=== PATIENT | male | born 1970 | race Caucasian/White ===

== ENCOUNTER 2021-06-01 01:50 | Inpatient (IN) | payer MEDICAID, SELFPAY ==
[2021-06-01] VITALS (22 sets, daily range): BP systolic 89–120; BP diastolic 43–74; PULSE 79–138; RESP 11–33; TEMP 32.2–36.9; O2SAT 92–100; BMI 19.3; BMI 20.2
--- NOTE | ~2021-06-01 | XR_ITS ---
EXAMINATION: XR CHEST CLINICAL INFORMATION: Shortness of breath. Altered mental status. COMPARISON: 08/01/2014 TECHNIQUE: Frontal view of the chest was obtained. FINDINGS: Cardiac leads overlie the chest. The lungs are well expanded. Opacity at the right midlung is likely associated with the anterior aspect of the right fourth rib. The lungs otherwise appear clear. No pleural effusion or pneumothorax. The cardiomediastinal silhouette is within normal limits. XR/XR chest 1V IMPRESSION: There is a focal opacity at the right midlung, though this is likely associated with the anterior right fourth rib. Otherwise clear lungs.
--- NOTE | 2021-06-01 02:00 | ECG_ITS ---
Test Reason : DKA Blood Pressure : / mmHG Vent. Rate : 107 BPM Atrial Rate : 107 BPM P-R Int : 172 ms QRS Dur : 104 ms QT Int : 388 ms P-R-T Axes : 082 082 058 degrees QTc Int : 517 ms Sinus tachycardia Otherwise normal ECG When compared with ECG of 01-AUG-2014 00:29, QT has lengthened Referred By: Mary Wong Electronically Signed By:Adolfo Madera
--- NOTE | 2021-06-01 02:07 | ED.AMS ---
HPI - Altered Mental Status General Chief Complaint: Altered Mental Status Stated Complaint: HIGH BLOOD SUGAR 485 W/AMS PER EMS Time Seen by Provider: 06/01/21 01:59 Source: family () Mode of arrival: EMS History of Present Illness HPI narrative: 50-year-old male brought in by EMS, altered mental status so unable to get any further history and otherwise on clinical assessment noted to be in DKA with smell and respiratory pattern. Related Data Allergies Allergy/AdvReac Type Severity Reaction Status Date / Time No Known Allergies Allergy Unverified 01/08/20 18:52 [No Known Allergies*] Review of Systems Review of Systems: Yes Unobtainable due to mental condition PMFSH Past Medical History Source: nursing notes reviewed Medical History (Updated 06/01/21 @ 05:51 by Tyree Wilson NP) Bowel obstruction Chronic anemia CKD (chronic kidney disease) Hypertension PEA (Pulseless electrical activity) Type 1 diabetes Social History Social History Household Members: Spouse Housing: Unknown / Unable to assess Do you presently have visiting nurse or other home services: No (UNKNOWN) Unable to assess alcohol history related to: Unknown Patient Tobacco Use Status: Tobacco use Unknown Use of substances other than those prescribed or required for medical reasons: Unknown Spiritual Healthcare Practices: UNKNOWN Jainism Healthcare Practices: UNKOWN Cultural Healthcare Practices: UNKNOWN Advance Directives: No Advance Directives Information Provided: No (declined) Do you have thoughts of harming others: None Recently lost weight without trying: Unsure Physical Exam Vital Signs: Vital Signs: Last Vital Signs Temp 97.3 F 06/01/21 08:00 Pulse 137 H 06/01/21 08:00 Resp 31 H 06/01/21 08:00 BP 120/63 06/01/21 08:00 Pulse Ox 100 06/01/21 08:00 BMI result Body Mass Index 19.3 VITAL SIGNS: Reviewed. GENERAL: Smells of acetone, appears older than stated age, acute distress. HEAD: Normocephalic/atraumatic EYES: PERRLA, EOMI EARS: Ext canals without abnormality NOSE: Nares patent bilateral OROPHARYNX: no oral lesions noted, posterior pharynx clear, dry mucosa NECK: Supple, no adenopathy LUNGS: Kussmaul breathing pattern, No adventitious sounds or accessory muscle use. SpO2<98> CARDIOVASCULAR: Sinus tachycardia and rhythm without noted murmurs, no JVD or lower extremity edema. ABDOMEN: Soft, non-tender, non-distended with bowel sounds. MUSCULOSKELETAL: No tenderness, deformities, or effusions noted on gross inspection. EXTREMITIES: No cyanosis, clubbing or edema. SKIN: Inspection of the skin reveals no rashes, cool extremities NEUROLOGIC: GCS-10. Strength and sensation to light touch were grossly intact x 4. Course Course Course Narrative: 50-year-old male with history and clinical presentation consistent with severe dehydration, DKA and unknown etiology. Patient has not been seen here at our facility previously and contact information is not available. As per EMS when asked who called them they stated that ?his called?. Patient is noted to be severely acidotic, is received aggressive IV fluid resuscitation and once potassium levels (gave Calcium gluconate) were ascertained patient was started on insulin drip and provided with IV push bicarb for pH-6.9 and due to elevated potassium levels which may be due in part to patient's severe dehydration he was provided with calcium gluconate. On review of the EKG shows sinus tachycardia without widened complex but peaked T-waves noted. Will repeat lab work at 05:00. Galvez catheter has started draining clear, yellow urine and patient's mentation has gradually improved. I discussed this case with the systems librarian who accepts admission On review of repeat lab work there is noted improvement. MDM - Altered Mental Status Lab Data Result diagrams: 06/01/21 04:51 06/01/21 04:51 Labs: Lab Results 06/01/21 06/01/21 06/01/21 Range/Units 01:56 03:06 03:06 WBC 37.9 H* (4.8-10.8) X10*3/uL RBC 3.21 L (4.60-5.80) X10*6/uL Hgb 8.5 L (14.0-18.0) g/dl Hct 34.2 L (42.0-52.0) % MCV 106.5 H (80.0-98.0) fL MCH 26.5 L (27.0-33.0) pg MCHC 24.9 L (31.0-36.0) g/dl RDW 17.5 H (11.0-16.0) % Plt Count 695 H (160-400) X10*3/uL MPV 10.5 (9.4-12.4) fL Immature Gran % (Auto) Cancelled Neut % (Auto) Cancelled Lymph % (Auto) Cancelled [place] % (Auto) Cancelled Eos % (Auto) Cancelled Baso % (Auto) Cancelled Lymph # (Auto) Cancelled [place] # (Auto) Cancelled Eos # (Auto) Cancelled Baso # (Auto) Cancelled Abs Immat Gran (auto) Cancelled Absolute Neuts (auto) Cancelled Absolute Nucleated RBC 0.040 H (0.0-0.012) X10*3/uL Nucleated RBC % (auto) 0.1 (0.0-0.2) /100WBC Neutrophils % (Manual) 78 H (45-73) % Band Neutrophils % 6 H (3-5) % Lymphocytes % (Manual) 9 L (20-40) % Monocytes % (Manual) 4 (2-11) % Basophils % (Manual) 1 (0-2) % Metamyelocytes % 2 % Abs Neuts (Manual) 31.8 H (2.0-8.3) X10*3/uL Lymphocytes # (Manual) 3.4 (1.2-4.9) X10*3/uL Monocytes # (Manual) 1.5 H (0.1-1.2) X10*3/uL Basophils # (Manual) 0.4 H (0.0-0.2) X10*3/uL Metamyelocytes # 0.8 X10*3/uL Nucleated RBCs 1 H (0-0) /100WBC Smudge Cells PRESENT Platelet Estimate INCREASED (NORMAL) Large Platelets PRESENT Giant Platelets PRESENT Plt Morphology Comment NOTED RBC Morphology NOTED Polychromasia 1+ (0-2) /OIF Microcytosis 1+ (5-14) /OIF Macrocytosis 1+ (5-14) /OIF Ovalocytes 1+ (5-14) /OIF Kirstie Cells 2+ (3-5) /OIF Schistocytes 1+ (0-2) /OIF PT (9.9-13.0) SEC INR (0.9-1.1) VBG pH (7.32-7.43) VBG pCO2 mmHg VBG pO2 mmHg VBG HCO3 (22-26) mmol/L VBG O2 Saturation % VBG Base Excess mmol/L Sodium 123 L (135-145) mmol/L Potassium 7.9 H* (3.3-5.1) mmol/L Chloride 78 L (96-108) mmol/L Carbon Dioxide < 5 L* (22-29) mmol/L Anion Gap TNP BUN 86 H (9-16) mg/dL Creatinine 4.20 H* (0.5-1.4) mg/dL Estim Creat Clear Calc 17.5 Estimated GFR 15 POC Glucose > 600 H* (60-115) mg/dL Random Glucose 1951 H* (60-115) mg/dL Lactic Acid (0.5-2.0) mmol/L Calcium 9.7 (8.4-10.2) mg/dL Magnesium 3.4 H (1.6-2.6) mg/dL Total Bilirubin 0.2 (0.0-1.0) mg/dL AST 15 (5-37) U/L ALT 49 H (0-40) U/L Alkaline Phosphatase 175 H (39-117) U/L Total Creatine Kinase 86 (38-174) U/L Total Protein 5.8 L (6.5-8.0) g/dL Albumin 3.3 L (3.5-5.0) g/dL Urine Color Urine Appearance Urine pH (5.0-8.0) Ur Specific [place] (1.005-1.025) Urine Protein (NEG-TRACE) MG/DL Urine Glucose (UA) (NEG) MG/DL Urine Ketones (NEG) MG/DL Urine Blood (NEG) Urine Nitrite (NEG) Ur Leukocyte Esterase (NEG) Urine RBC (0) /HPF Urine WBC (0-4) /HPF Ur Squamous Epith Cells /LPF Urine Bacteria /LPF Hyaline Casts /LPF Granular Casts /LPF Urine Mucus /LPF Urine Opiates Screen (Not Detect) Urine Fentanyl Screen (Not Detect) Ur Barbiturates Screen (Not Detect) Ur Phencyclidine Scrn (Not Detect) Ur Amphetamines Screen (Not Detect) U Benzodiazepines Scrn (Not Detect) Urine Cocaine Screen (Not Detect) U Marijuana (THC) Screen (Not Detect) Acetone, Qual Moderate H (Negative) COVID-19 (CON) (Negative) COVID-19 Clin Com 06/01/21 06/01/21 06/01/21 Range/Units 03:06 03:06 03:09 WBC (4.8-10.8) X10*3/uL RBC (4.60-5.80) X10*6/uL Hgb (14.0-18.0) g/dl Hct (42.0-52.0) % MCV (80.0-98.0) fL MCH (27.0-33.0) pg MCHC (31.0-36.0) g/dl RDW (11.0-16.0) % Plt Count (160-400) X10*3/uL MPV (9.4-12.4) fL Immature Gran % (Auto) Neut % (Auto) Lymph % (Auto) [place] % (Auto) Eos % (Auto) Baso % (Auto) Lymph # (Auto) [place] # (Auto) Eos # (Auto) Baso # (Auto) Abs Immat Gran (auto) Absolute Neuts (auto) Absolute Nucleated RBC (0.0-0.012) X10*3/uL Nucleated RBC % (auto) (0.0-0.2) /100WBC Neutrophils % (Manual) (45-73) % Band Neutrophils % (3-5) % Lymphocytes % (Manual) (20-40) % Monocytes % (Manual) (2-11) % Basophils % (Manual) (0-2) % Metamyelocytes % % Abs Neuts (Manual) (2.0-8.3) X10*3/uL Lymphocytes # (Manual) (1.2-4.9) X10*3/uL Monocytes # (Manual) (0.1-1.2) X10*3/uL Basophils # (Manual) (0.0-0.2) X10*3/uL Metamyelocytes # X10*3/uL Nucleated RBCs (0-0) /100WBC Smudge Cells Platelet Estimate (NORMAL) Large Platelets Giant Platelets Plt Morphology Comment RBC Morphology Polychromasia /OIF Microcytosis /OIF Macrocytosis /OIF Ovalocytes /OIF Kirstie Cells /OIF Schistocytes /OIF PT 11.5 (9.9-13.0) SEC INR 1.0 (0.9-1.1) VBG pH (7.32-7.43) VBG pCO2 mmHg VBG pO2 mmHg VBG HCO3 (22-26) mmol/L VBG O2 Saturation % VBG Base Excess mmol/L Sodium (135-145) mmol/L Potassium (3.3-5.1) mmol/L Chloride (96-108) mmol/L Carbon Dioxide (22-29) mmol/L Anion Gap BUN (9-16) mg/dL Creatinine (0.5-1.4) mg/dL Estim Creat Clear Calc Estimated GFR POC Glucose (60-115) mg/dL Random Glucose (60-115) mg/dL Lactic Acid 2.5 H* (0.5-2.0) mmol/L Calcium (8.4-10.2) mg/dL Magnesium (1.6-2.6) mg/dL Total Bilirubin (0.0-1.0) mg/dL AST (5-37) U/L ALT (0-40) U/L Alkaline Phosphatase (39-117) U/L Total Creatine Kinase (38-174) U/L Total Protein (6.5-8.0) g/dL Albumin (3.5-5.0) g/dL Urine Color Urine Appearance Urine pH (5.0-8.0) Ur Specific [place] (1.005-1.025) Urine Protein (NEG-TRACE) MG/DL Urine Glucose (UA) (NEG) MG/DL Urine Ketones (NEG) MG/DL Urine Blood (NEG) Urine Nitrite (NEG) Ur Leukocyte Esterase (NEG) Urine RBC (0) /HPF Urine WBC (0-4) /HPF Ur Squamous Epith Cells /LPF Urine Bacteria /LPF Hyaline Casts /LPF Granular Casts /LPF Urine Mucus /LPF Urine Opiates Screen (Not Detect) Urine Fentanyl Screen (Not Detect) Ur Barbiturates Screen (Not Detect) Ur Phencyclidine Scrn (Not Detect) Ur Amphetamines Screen (Not Detect) U Benzodiazepines Scrn (Not Detect) Urine Cocaine Screen (Not Detect) U Marijuana (THC) Screen (Not Detect) Acetone, Qual (Negative) COVID-19 (CON) Negative (Negative) COVID-19 Clin Com See Note 06/01/21 06/01/21 06/01/21 Range/Units 03:16 04:39 04:39 WBC (4.8-10.8) X10*3/uL RBC (4.60-5.80) X10*6/uL Hgb (14.0-18.0) g/dl Hct (42.0-52.0) % MCV (80.0-98.0) fL MCH (27.0-33.0) pg MCHC (31.0-36.0) g/dl RDW (11.0-16.0) % Plt Count (160-400) X10*3/uL MPV (9.4-12.4) fL Immature Gran % (Auto) Neut % (Auto) Lymph % (Auto) [place] % (Auto) Eos % (Auto) Baso % (Auto) Lymph # (Auto) [place] # (Auto) Eos # (Auto) Baso # (Auto) Abs Immat Gran (auto) Absolute Neuts (auto) Absolute Nucleated RBC (0.0-0.012) X10*3/uL Nucleated RBC % (auto) (0.0-0.2) /100WBC Neutrophils % (Manual) (45-73) % Band Neutrophils % (3-5) % Lymphocytes % (Manual) (20-40) % Monocytes % (Manual) (2-11) % Basophils % (Manual) (0-2) % Metamyelocytes % % Abs Neuts (Manual) (2.0-8.3) X10*3/uL Lymphocytes # (Manual) (1.2-4.9) X10*3/uL Monocytes # (Manual) (0.1-1.2) X10*3/uL Basophils # (Manual) (0.0-0.2) X10*3/uL Metamyelocytes # X10*3/uL Nucleated RBCs (0-0) /100WBC Smudge Cells Platelet Estimate (NORMAL) Large Platelets Giant Platelets Plt Morphology Comment RBC Morphology Polychromasia /OIF Microcytosis /OIF Macrocytosis /OIF Ovalocytes /OIF Kirstie Cells /OIF Schistocytes /OIF PT (9.9-13.0) SEC INR (0.9-1.1) VBG pH 6.94 L* (7.32-7.43) VBG pCO2 13 mmHg VBG pO2 92 mmHg VBG HCO3 3 L (22-26) mmol/L VBG O2 Saturation 85.0 % VBG Base Excess -27.2 mmol/L Sodium (135-145) mmol/L Potassium (3.3-5.1) mmol/L Chloride (96-108) mmol/L Carbon Dioxide (22-29) mmol/L Anion Gap BUN (9-16) mg/dL Creatinine (0.5-1.4) mg/dL Estim Creat Clear Calc Estimated GFR POC Glucose (60-115) mg/dL Random Glucose (60-115) mg/dL Lactic Acid (0.5-2.0) mmol/L Calcium (8.4-10.2) mg/dL Magnesium (1.6-2.6) mg/dL Total Bilirubin (0.0-1.0) mg/dL AST (5-37) U/L ALT (0-40) U/L Alkaline Phosphatase (39-117) U/L Total Creatine Kinase (38-174) U/L Total Protein (6.5-8.0) g/dL Albumin (3.5-5.0) g/dL Urine Color YELLOW Urine Appearance CLEAR Urine pH 5.5 (5.0-8.0) Ur Specific [place] 1.025 (1.005-1.025) Urine Protein 1+ H (NEG-TRACE) MG/DL Urine Glucose (UA) >=1000 H (NEG) MG/DL Urine Ketones 15 (NEG) MG/DL Urine Blood TRACE (NEG) Urine Nitrite NEG (NEG) Ur Leukocyte Esterase NEG (NEG) Urine RBC 1-4 (0) /HPF Urine WBC 1-4 (0-4) /HPF Ur Squamous Epith Cells 1+ /LPF Urine Bacteria 1+ /LPF Hyaline Casts 0-2 /LPF Granular Casts 0-2 /LPF Urine Mucus 1+ /LPF Urine Opiates Screen Not Detected (Not Detect) Urine Fentanyl Screen Not Detected (Not Detect) Ur Barbiturates Screen Not Detected (Not Detect) Ur Phencyclidine Scrn Not Detected (Not Detect) Ur Amphetamines Screen Not Detected (Not Detect) U Benzodiazepines Scrn Not Detected (Not Detect) Urine Cocaine Screen Not Detected (Not Detect) U Marijuana (THC) Screen POSITIVE H (Not Detect) Acetone, Qual (Negative) COVID-19 (CON) (Negative) COVID-19 Clin Com ECG Data ECG #1: Attestation: I personally reviewed and interpreted this ECG as follows: Prior ECG tracings: available for review Interpretation: Sinus tachycardia, HR-107, no STEMI, ID/QRS are within normal limits and QTC is somewhat prolonged. Procedures Central Line Placement Left Femoral: Time Out Performed: No Patient Placed on Monitor/Pulse Ox: Yes MD Prep: mask, gown, gloves and other Central Line Prep: Chlorhexidine scrub Ultrasound Used for Placement: Yes Central Line Lumen Inserted: triple Post Procedure: sutured in place, good blood return, all ports aspirated, flushed, capped and sterile dressing applied Patient Tolerated Procedure: well Complications: none EJ/Peripheral Line Neck R: Time Out Performed: No Size (gauge): 18 IV Secured and Dressing Applied: Yes Patient Tolerated Procedure: well Critical Care Time Critical Care Time Critical Care Time: Yes Total Critical Care Time: 60 Attestation: I personally attest to this time spent taking care of the patient. Discharge Plan Discharge Clinical Impression: Altered mental status, DKA (diabetic ketoacidosis), ROBERT (acute kidney injury), Anemia Patient Disposition: Admitted As Inpatient Interventions: Admission Worksheet (ED) Last Done: 06/01/21 05:50 Discharge Date/Time: 06/01/21 06:01
[2021-06-01 03:18] LABS: Hemoglobin 8.5 g/dl (14.0-18.0); Mean Corpuscular HGB Conc 24.9 g/dl (31.0-36.0); NRBC Pct Auto 0.1 /100WBC (0.0-0.2)
[2021-06-01 03:25] LABS: VBG Base Excess -27.2 mmol/L; VBG HCO3 3 mmol/L (22-26); VBG pCO2 13 mmHg; VBG pH 6.94 (7.32-7.43); VBG pO2 92 mmHg
[2021-06-01 03:25] LABS: Hematocrit 34.2 % (42.0-52.0); Mean Corpuscular Hemoglobin 26.5 pg (27.0-33.0); Mean Corpuscular Volume 106.5 fL (80.0-98.0); Mean Platelet Volume 10.5 fL (9.4-12.4); Platelet Count 695 X10*3/uL (160-400); Red Blood Count 3.21 X10*6/uL (4.60-5.80); Red Cell Distribution Width 17.5 % (11.0-16.0)
[2021-06-01 03:26] LABS: Venous Blood Gas Refer to POC result
[2021-06-01 03:28] LABS: Prothrombin Time 11.5 SEC (9.9-13.0)
[2021-06-01 03:32] LABS: COVID-19 Test Negative (Negative)
[2021-06-01 03:35] LABS: Acetone, serum QL Moderate (Negative)
[2021-06-01 03:36] LABS: Lactic Acid 2.5 mmol/L (0.5-2.0)
[2021-06-01 03:49] LABS: White Blood Count 37.9 X10*3/uL (4.8-10.8)
[2021-06-01] MEDS: 0.9 % Sodium Chloride 2,000 ML 999 ML IV (03:51)
[2021-06-01 03:53] LABS: Band Neutrophils Percent 6 % (3-5); Basophils Abs Manual 0.4 X10*3/uL (0.0-0.2); Basophils Percent Manual 1 % (0-2); Lymphocytes Absolute Manual 3.4 X10*3/uL (1.2-4.9); Lymphocytes Percent Manual 9 % (20-40); Metamyelocytes Absolute 0.8 X10*3/uL; Metamyelocytes Percent 2 %; Monocytes Absolute Manual 1.5 X10*3/uL (0.1-1.2); Monocytes Percent Manual 4 % (2-11); Neutrophils Absolute Manual 31.8 X10*3/uL (2.0-8.3); Neutrophils Percent Manual 78 % (45-73); Nucleated Red Blood Cells 1 /100WBC (0-0)
[2021-06-01 03:56] LABS: Macrocytosis 1+ (5-14) /OIF; Microcytosis 1+ (5-14) /OIF; RBC Morphology NOTED
[2021-06-01] MEDS: Piperacillin Sodium/Tazobactam 3.375 GM in 0.9 % Sodium Chloride 50 ML IV ×3 (03:56→23:54)
[2021-06-01 03:58] LABS: Alanine Aminotransferase 49 U/L (0-40); Albumin Level 3.3 g/dL (3.5-5.0); Alkaline Phosphatase 175 U/L (39-117); Aspartate Amino Transferase 15 U/L (5-37); Bilirubin Total 0.2 mg/dL (0.0-1.0); Blood Urea Nitrogen 86 mg/dL (9-16); Calcium 9.7 mg/dL (8.4-10.2); Carbon Dioxide < 5 mmol/L (22-29); Chloride 78 mmol/L (96-108); Creatinine Clr Calc Pharmacy 17.5; Estimated Glomerular Filt Rate 15; Glucose Random 1951 mg/dL (60-115); Ovalocytes 1+ (5-14) /OIF; Potassium 7.9 mmol/L (3.3-5.1); Sodium 123 mmol/L (135-145); Total Protein 5.8 g/dL (6.5-8.0)
[2021-06-01 03:59] LABS: Burr Cells 2+ (3-5) /OIF
[2021-06-01 04:00] LABS: Giant Platelet PRESENT; Large Platelet PRESENT; Platelet Estimate INCREASED (NORMAL); Platelet Morphology Comment NOTED; Schistocytes 1+ (0-2) /OIF; Smudge Cells PRESENT
[2021-06-01 04:02] LABS: Polychromasia 1+ (0-2) /OIF
[2021-06-01 04:11] LABS: Glucose, Whole Blood > 600 mg/dL (60-115)
[2021-06-01] MEDS: Insulin Lispro 100 UNIT/ML 3 ML VIAL 10 UNIT SUBCUT (04:22)
[2021-06-01] MEDS: Insulin Regular/NS 100 UNIT/100 ML PLAST..BAG IVCONT (04:22)
[2021-06-01 04:26] LABS: Magnesium 3.4 mg/dL (1.6-2.6)
[2021-06-01] MEDS: 0.9 % Sodium Chloride 3,000 ML 999 ML IV (04:27)
[2021-06-01] MEDS: Calcium Gluconate/NaCl,Iso-Osm 2 GM/100 ML PLAST..BAG IV (04:32)
[2021-06-01] MEDS: Sodium Bicarbonate 8.4% 50 MEQ/50 ML SYRINGE IVPUSH (04:32)
--- NOTE | 2021-06-01 04:48 | PC.NURSE ---
ATTEMPTING TO CALL DAUGHTER, NUMBER PROVIDED IN CHART WAS NOT HIS DAUGHTERS NUMBER. NO FURTHER NUMBERS FOR FAMILY MEMBERS. PROVIDER MADE AWARE
[2021-06-01 04:51] LABS: Appearance Urine CLEAR; Color Urine YELLOW; Glucose Urine UA >=1000 MG/DL (NEG); Leukocyte Esterase Urine NEG (NEG); Nitrite Urine NEG (NEG); PH 5.5 (5.0-8.0); Specific Gravity - Urine 1.025 (1.005-1.025); UACC Culture Trigger NO; Urine Blood TRACE (NEG); Urine Ketones 15 MG/DL (NEG); Urine Protein 1+ MG/DL (NEG-TRACE)
[2021-06-01 04:58] LABS: Bacteria Urine 1+ /LPF; Mucus Urine 1+ /LPF; Squamous Epithelial Cell Urine 1+ /LPF
[2021-06-01 04:59] LABS: Granular Casts Urine 0-2 /LPF; Hyaline Casts Urine 0-2 /LPF
[2021-06-01 05:01] LABS: Hematocrit 26.6 % (42.0-52.0); Mean Corpuscular HGB Conc 26.3 g/dl (31.0-36.0); Mean Corpuscular Hemoglobin 26.3 pg (27.0-33.0); Mean Platelet Volume 10.3 fL (9.4-12.4); Platelet Count 519 X10*3/uL (160-400); Red Blood Count 2.66 X10*6/uL (4.60-5.80); Red Cell Distribution Width 17.3 % (11.0-16.0)
--- NOTE | 2021-06-01 05:02 | PC.NURSE ---
PT arrived at this facility with reports of hyperglycemia and AMS from EMS. Upon arrival PT was awake but unable to respond to any questions or provide details of the events leading up to EMS transport. PT skin was cold to the touch. This RN attempted to obtained body temp using rectal temp but thermometer was unable to obtain a reading. PT placed under bear hugger to treat suspected hypothermia. Temp sensing fonseca catheter was placed on this PT and inital temp reading was 89.0. Multiple RNs attempted to obtained IV access without success. Dr. Wong came and placed IV access in JV. Dr. Wong then inserted triple lumen central line in PT's femoral. PT needed to be placed in soft restraints in order to tolerate the procedure. PT receiving fluids through fluid warmer. PT labs drawn and PT medicated per JUN. PT is currently sleeping at this time.
[2021-06-01 05:04] LABS: Amphetamine Screen Urine Not Detected (Not Detect); Barbiturates, Urine Not Detected (Not Detect); Benzodiazepines Screen Urine Not Detected (Not Detect); Cannabinoid Screen Urine POSITIVE (Not Detect); Cocaine Screen Urine Not Detected (Not Detect); Fentanyl, urine Not Detected (Not Detect); Opiate Screen Urine Not Detected (Not Detect); Phencyclidine Screen Urine Not Detected (Not Detect)
[2021-06-01 05:04] LABS: Venous Blood Gas Refer to POC result
[2021-06-01 05:04] LABS: VBG Base Excess -26.6 mmol/L; VBG HCO3 2 mmol/L (22-26); VBG pCO2 8 mmHg; VBG pO2 129 mmHg
[2021-06-01 05:13] LABS: Reflex Lactate? Lactic Acid Added
[2021-06-01 05:21] LABS: White Blood Count 32.5 X10*3/uL (4.8-10.8)
[2021-06-01 05:24] LABS: Band Neutrophils Percent 4 % (3-5); Lymphocytes Absolute Manual 5.5 X10*3/uL (1.2-4.9); Lymphocytes Percent Manual 17 % (20-40); Metamyelocytes Absolute 0.3 X10*3/uL; Metamyelocytes Percent 1 %; Monocytes Absolute Manual 0.3 X10*3/uL (0.1-1.2); Monocytes Percent Manual 1 % (2-11); Neutrophils Absolute Manual 26.3 X10*3/uL (2.0-8.3); Neutrophils Percent Manual 77 % (45-73); RBC Morphology NOTED
--- NOTE | 2021-06-01 05:24 | PC.NURSE ---
ICU provider instructed this RN to increase insulin drip to 15 mL/hr.
[2021-06-01 05:26] LABS: Burr Cells 2+ (3-5) /OIF; Large Platelet PRESENT; Ovalocytes 1+ (5-14) /OIF; Platelet Estimate INCREASED (NORMAL); Polychromasia 1+ (0-2) /OIF; Smudge Cells PRESENT
[2021-06-01 05:27] LABS: Schistocytes 1+ (0-2) /OIF
[2021-06-01 05:28] LABS: Alanine Aminotransferase 40 U/L (0-40); Albumin Level 2.6 g/dL (3.5-5.0); Alkaline Phosphatase 141 U/L (39-117); Aspartate Amino Transferase 15 U/L (5-37); Bilirubin Total 0.2 mg/dL (0.0-1.0); Blood Urea Nitrogen 84 mg/dL (9-16); Calcium 8.2 mg/dL (8.4-10.2); Carbon Dioxide < 5 mmol/L (22-29); Chloride 89 mmol/L (96-108); Creatinine Clr Calc Pharmacy 19.3; Estimated Glomerular Filt Rate 17; Glucose Random 1655 mg/dL (60-115); Macrocytosis 1+ (5-14) /OIF; Potassium 6.3 mmol/L (3.3-5.1); Sodium 130 mmol/L (135-145); Total Protein 4.6 g/dL (6.5-8.0)
[2021-06-01 05:30] LABS: Microcytosis 1+ (5-14) /OIF
[2021-06-01 05:31] LABS: Platelet Morphology Comment NOTE
--- NOTE | 2021-06-01 05:38 | P.HPCC_ITS ---
History of Present Illness Date of Service: 06/01/21 Attending physician on admission: Eze Matthews Chief Complaint: Lethargy The patient is a 50-year-old male with history of type 1 diabetes mellitus? with prior multiple episodes of DKA, PEA arrest August 2020, hypertension,? alcohol abuse, chronic kidney disease, chronic anemia, hyperlipidemia? 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 emergency room via ambulance after being found? severely lethargic by .? EMS noted blood sugar 485 on arrival to patient?s home.? According to the patient was found in the basement? and she was unable to wake him up.? On arrival to the emergency room patient was obtunded,? but able to protect airway,? temperature 90.0,? pulse 112, blood pressure 95/56. ? Random glucose was noted to be 1951. ?VBGs: 6.94// 13/92/3.? Other significant laboratory data? WBC? 37.9,? hemoglobin 8.5, crit 34,? sodium 123, potassium 7.9, chloride 78, serum bicarb<5,? BUN 86, creatinine 4.20, lactic acid 2.5, magnesium 3.4, ALT 49, alk phos 175 ?Urine:? positive for acetone? and ketones.? Tox screen positive for THC ? In the ED he received? an amp of bicarb, 10 units of? subcut lispro,? Zosyn, calcium gluconate, 3 L? normal saline,? and started on insulin drip ? Patient will be admitted to the ICU for management of ketoacidosis requiring insulin drip Review of Systems Review of Systems: Unable to perform, patient is lethargic [facility] Past Medical History Medical History (Updated 06/01/21 @ 05:51 by Tyree Wilson NP) Bowel obstruction Chronic anemia CKD (chronic kidney disease) Hypertension PEA (Pulseless electrical activity) Type 1 diabetes Social History Social History Advance Directives: No Meds Allergies Allergy/AdvReac Type Severity Reaction Status Date / Time No Known Allergies Allergy Unverified 01/08/20 18:52 [No Known Allergies*] Active Medications: Current Medications Heparin Sodium (Porcine) (Heparin Sodium,Porcine 5,000 Unit/Ml Vial) 5,000 unit SUBCUT Q8H [facility] Sodium Chloride (Ns) 3,000 mls @ 999 mls/hr IV .Q3H1M DEBORAH Stop: 06/01/21 07:00 Last Admin: 06/01/21 04:27 Dose: 999 mls/hr Documented by: Insulin Human Regular (Myxredlin) 100 unit in 100 mls @ 5 mls/hr IVCONT .Q20H DEBORAH; Protocol Last Admin: 06/01/21 04:22 Dose: 5 units/hr, 5 mls/hr Documented by: Calcium Gluconate (Calcium Gluconate) 2 gm in 100 mls @ 50 mls/hr IV ONCE ONE Stop: 06/01/21 06:06 Last Admin: 06/01/21 04:32 Dose: 50 mls/hr Documented by: Lactated Ringer's (Lr) 1,000 mls @ 200 mls/hr IVCONT .Q5H [facility] Physical Exam Vital Signs: Vital Signs: Last Vital Signs Temp 92.3 F L 06/01/21 04:58 Pulse 125 H 06/01/21 04:58 Resp 20 06/01/21 04:58 BP 106/43 L 06/01/21 04:58 Pulse Ox 100 06/01/21 04:58 BMI result Body Mass Index 19.3 Focused assement at 0500 GeneralL: Lethargic, In no apparent distress ?HEENT: Dry oral mucous membrane CARD: Sinus tachy. Normal rate and rhythm, no murmurs, no rubs, no gallops. Normal cap refill ?RESP: Lungs clear to auscultation, no wheezes , no crackles GI: Nondistended, soft, nontender, normal bowel sounds, colostomy bag intact with no redness or erythema noted around the bag. Extremities: No? pitting edema NEURO: Non focal neuro exam. ?HEME: No lymphadenopathy. ?SKIN: Warm and dry. Results Labs CBC and Chem 7: 06/01/21 04:51 06/01/21 04:51 Labs: Laboratory Results - last 24 hr 06/01/21 06/01/21 06/01/21 01:56 03:06 03:06 MCV 106.5 H MCH 26.5 L MCHC 24.9 L RDW 17.5 H Plt Count 695 H MPV 10.5 Immature Gran % (Auto) Cancelled Neut % (Auto) Cancelled Lymph % (Auto) Cancelled [place] % (Auto) Cancelled Eos % (Auto) Cancelled Baso % (Auto) Cancelled Lymph # (Auto) Cancelled [place] # (Auto) Cancelled Eos # (Auto) Cancelled Baso # (Auto) Cancelled Abs Immat Gran (auto) Cancelled Absolute Neuts (auto) Cancelled Absolute Nucleated RBC 0.040 H Nucleated RBC % (auto) 0.1 Neutrophils % (Manual) 78 H Band Neutrophils % 6 H Lymphocytes % (Manual) 9 L Monocytes % (Manual) 4 Basophils % (Manual) 1 Metamyelocytes % 2 Abs Neuts (Manual) 31.8 H Lymphocytes # (Manual) 3.4 Monocytes # (Manual) 1.5 H Basophils # (Manual) 0.4 H Metamyelocytes # 0.8 Nucleated RBCs 1 H Smudge Cells PRESENT Platelet Estimate INCREASED Large Platelets PRESENT Giant Platelets PRESENT Plt Morphology Comment NOTED RBC Morphology NOTED Polychromasia 1+ (0-2) Microcytosis 1+ (5-14) Macrocytosis 1+ (5-14) Ovalocytes 1+ (5-14) [place] Cells 2+ (3-5) Schistocytes 1+ (0-2) PT INR VBG pH VBG pCO2 VBG pO2 VBG HCO3 VBG O2 Saturation VBG Base Excess Anion Gap TNP Estim Creat Clear Calc 17.5 Estimated GFR 15 POC Glucose > 600 H* Random Glucose 1951 H* Lactic Acid Calcium 9.7 Magnesium 3.4 H Total Bilirubin 0.2 AST 15 ALT 49 H Alkaline Phosphatase 175 H Total Creatine Kinase 86 Total Protein 5.8 L Albumin 3.3 L Urine Color Urine Appearance Urine pH Ur Specific [place] Urine Protein Urine Glucose (UA) Urine Ketones Urine Blood Urine Nitrite Ur Leukocyte Esterase Urine RBC Urine WBC Ur Squamous Epith Cells Urine Bacteria Hyaline Casts Granular Casts Urine Mucus Urine Opiates Screen Urine Fentanyl Screen Ur Barbiturates Screen Ur Phencyclidine Scrn Ur Amphetamines Screen U Benzodiazepines Scrn Urine Cocaine Screen U Marijuana (THC) Screen Acetone, Qual Moderate H COVID-19 (CON) COVID-19 Clin Com 06/01/21 06/01/21 06/01/21 03:06 03:06 03:09 MCV MCH MCHC RDW Plt Count MPV Immature Gran % (Auto) Neut % (Auto) Lymph % (Auto) [place] % (Auto) Eos % (Auto) Baso % (Auto) Lymph # (Auto) [place] # (Auto) Eos # (Auto) Baso # (Auto) Abs Immat Gran (auto) Absolute Neuts (auto) Absolute Nucleated RBC Nucleated RBC % (auto) Neutrophils % (Manual) Band Neutrophils % Lymphocytes % (Manual) Monocytes % (Manual) Basophils % (Manual) Metamyelocytes % Abs Neuts (Manual) Lymphocytes # (Manual) Monocytes # (Manual) Basophils # (Manual) Metamyelocytes # Nucleated RBCs Smudge Cells Platelet Estimate Large Platelets Giant Platelets Plt Morphology Comment RBC Morphology Polychromasia Microcytosis Macrocytosis Ovalocytes Kirstie Cells Schistocytes PT 11.5 INR 1.0 VBG pH VBG pCO2 VBG pO2 VBG HCO3 VBG O2 Saturation VBG Base Excess Anion Gap Estim Creat Clear Calc Estimated GFR POC Glucose Random Glucose Lactic Acid 2.5 H* Calcium Magnesium Total Bilirubin AST ALT Alkaline Phosphatase Total Creatine Kinase Total Protein Albumin Urine Color Urine Appearance Urine pH Ur Specific [place] Urine Protein Urine Glucose (UA) Urine Ketones Urine Blood Urine Nitrite Ur Leukocyte Esterase Urine RBC Urine WBC Ur Squamous Epith Cells Urine Bacteria Hyaline Casts Granular Casts Urine Mucus Urine Opiates Screen Urine Fentanyl Screen Ur Barbiturates Screen Ur Phencyclidine Scrn Ur Amphetamines Screen U Benzodiazepines Scrn Urine Cocaine Screen U Marijuana (THC) Screen Acetone, Qual COVID-19 (CON) Negative COVID-19 Clin Com See Note 06/01/21 06/01/21 06/01/21 03:16 04:39 04:39 MCV MCH MCHC RDW Plt Count MPV Immature Gran % (Auto) Neut % (Auto) Lymph % (Auto) [place] % (Auto) Eos % (Auto) Baso % (Auto) Lymph # (Auto) [place] # (Auto) Eos # (Auto) Baso # (Auto) Abs Immat Gran (auto) Absolute Neuts (auto) Absolute Nucleated RBC Nucleated RBC % (auto) Neutrophils % (Manual) Band Neutrophils % Lymphocytes % (Manual) Monocytes % (Manual) Basophils % (Manual) Metamyelocytes % Abs Neuts (Manual) Lymphocytes # (Manual) Monocytes # (Manual) Basophils # (Manual) Metamyelocytes # Nucleated RBCs Smudge Cells Platelet Estimate Large Platelets Giant Platelets Plt Morphology Comment RBC Morphology Polychromasia Microcytosis Macrocytosis Ovalocytes [place] Cells Schistocytes PT INR VBG pH 6.94 L* VBG pCO2 13 VBG pO2 92 VBG HCO3 3 L VBG O2 Saturation 85.0 VBG Base Excess -27.2 Anion Gap Estim Creat Clear Calc Estimated GFR POC Glucose Random Glucose Lactic Acid Calcium Magnesium Total Bilirubin AST ALT Alkaline Phosphatase Total Creatine Kinase Total Protein Albumin Urine Color YELLOW Urine Appearance CLEAR Urine pH 5.5 Ur Specific [place] 1.025 Urine Protein 1+ H Urine Glucose (UA) >=1000 H Urine Ketones 15 Urine Blood TRACE Urine Nitrite NEG Ur Leukocyte Esterase NEG Urine RBC 1-4 Urine WBC 1-4 Ur Squamous Epith Cells 1+ Urine Bacteria 1+ Hyaline Casts 0-2 Granular Casts 0-2 Urine Mucus 1+ Urine Opiates Screen Not Detected Urine Fentanyl Screen Not Detected Ur Barbiturates Screen Not Detected Ur Phencyclidine Scrn Not Detected Ur Amphetamines Screen Not Detected U Benzodiazepines Scrn Not Detected Urine Cocaine Screen Not Detected U Marijuana (THC) Screen POSITIVE H Acetone, Qual COVID-19 (CON) COVID-19 Clin Com 06/01/21 06/01/21 06/01/21 04:51 04:51 04:57 MCV 100.0 H D MCH 26.3 L MCHC 26.3 L RDW 17.3 H Plt Count 519 H D MPV 10.3 Immature Gran % (Auto) Cancelled Neut % (Auto) Cancelled Lymph % (Auto) Cancelled [place] % (Auto) Cancelled Eos % (Auto) Cancelled Baso % (Auto) Cancelled Lymph # (Auto) Cancelled [place] # (Auto) Cancelled Eos # (Auto) Cancelled Baso # (Auto) Cancelled Abs Immat Gran (auto) Cancelled Absolute Neuts (auto) Cancelled Absolute Nucleated RBC 0.000 Nucleated RBC % (auto) 0.0 Neutrophils % (Manual) 77 H Band Neutrophils % 4 Lymphocytes % (Manual) 17 L Monocytes % (Manual) 1 L Basophils % (Manual) Metamyelocytes % 1 Abs Neuts (Manual) 26.3 H Lymphocytes # (Manual) 5.5 H Monocytes # (Manual) 0.3 Basophils # (Manual) Metamyelocytes # 0.3 Nucleated RBCs Smudge Cells PRESENT Platelet Estimate INCREASED Large Platelets PRESENT Giant Platelets Plt Morphology Comment NOTE RBC Morphology NOTED Polychromasia 1+ (0-2) Microcytosis 1+ (5-14) Macrocytosis 1+ (5-14) Ovalocytes 1+ (5-14) [place] Cells 2+ (3-5) Schistocytes 1+ (0-2) PT INR VBG pH 7.00 L* VBG pCO2 8 VBG pO2 129 VBG HCO3 2 L VBG O2 Saturation 93.0 VBG Base Excess -26.6 Anion Gap TNP Estim Creat Clear Calc 19.3 Estimated GFR 17 POC Glucose Random Glucose 1655 H* Lactic Acid Calcium 8.2 L D Magnesium Total Bilirubin 0.2 AST 15 ALT 40 Alkaline Phosphatase 141 H Total Creatine Kinase Total Protein 4.6 L D Albumin 2.6 L D Urine Color Urine Appearance Urine pH Ur Specific [place] Urine Protein Urine Glucose (UA) Urine Ketones Urine Blood Urine Nitrite Ur Leukocyte Esterase Urine RBC Urine WBC Ur Squamous Epith Cells Urine Bacteria Hyaline Casts Granular Casts Urine Mucus Urine Opiates Screen Urine Fentanyl Screen Ur Barbiturates Screen Ur Phencyclidine Scrn Ur Amphetamines Screen U Benzodiazepines Scrn Urine Cocaine Screen U Marijuana (THC) Screen Acetone, Qual COVID-19 (CON) COVID-19 Clin Com Assessment and Plan (1) DKA (diabetic ketoacidosis): Status: Acute (2) Type 1 diabetes: Status: Acute (3) Hypothermia: Status: Acute (4) Encephalopathy: Status: Acute (5) Altered mental status: Status: Acute (6) ROBERT (acute kidney injury): Status: Acute (7) Anemia: Status: Acute (8) Hyperkalemia: Status: Acute Plan 50-year-old male with history of type 1 diabetes mellitus with prior episodes of DKA, PEA arrest August 2020, alcohol abuse,? 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 Neuro:?Encephalopathy:? this is likely related to severe DKA.? should resolve? with improvement of DKA Cardiac:?? ?Elevated lactic:? patient has elevated lactic/ leukocytosis? but? no clear evidence of active infection.? Will continue antibiotics.?? ?Hypothermia:? unsure how long patient was down in the basement.? Initial temperature 90.0.? Placed on? Kyle Hugger.? Will obtain TSH? level.? Pulmonary:? no acute issues?? Renal:? ROBERT-? baseline creatinine 0.9,? most likely related to hypoperfusion, no noliguric.? Continue IV fluid.? Continue to check renal induces and urine output Hyperkalemia-? most likely related to DKA.? Closely monitor electrolytes GI:?? ?No acute issues Endo:??? type 1 diabetes /diabetic ketoacidosis-? patient has history of noncompliance with insulin,? with multiple admission? at [facility] for DKA.? continue insulin drip until her gap is close. Follow DKA protocol? ID:? ? leukocytosis:? patient has leukocytosis but no for source of infection.? Cultures are pending.? Will continue broad-spectrum antibiotics until cultures result Heme/Onc:? No acute issues. Psych:? No acute issues. Miscellaneous:? No acute issues. Prophylaxis: subcu heparin Diet: ? NPO?? Critical care time: 45x minutes of critical care time? CODE: FULL Case discussed with attending Dr Matthews Critical Care Time 45 min
[2021-06-01] MEDS: Lactated Ringers 1,000 ML 200 ML IVCONT ×2 (05:56→12:03)
[2021-06-01 06:07] LABS: Glucose, Whole Blood > 600 mg/dL (60-115)
[2021-06-01] MEDS: vancomycin HCL 1,000 MG in 0.9 % Sodium Chloride 250 ML 270 MG IV (06:30)
[2021-06-01] MEDS: Heparin Sodium,Porcine 5,000 UNIT/ML VIAL 5000 UNIT SUBCUT ×3 (06:31→22:47)
[2021-06-01 06:32] LABS: OBS Int Ctl Valid YES; OBS1 NEGATIVE (NEGATIVE)
--- NOTE | 2021-06-01 07:03 | PC.NURSE ---
Pt admitted to ICU at approx 0545. Pt A&Ox2, vague, impulsive- telesitter placed. Kyle hugger on pt, temp up to 95. ST on tele, HR 130s. SBP WNL. Insulin gtt titrated per [employer], see emar. Galvez in place. Skin intact.
[2021-06-01 07:09] LABS: Glucose, Whole Blood > 600 mg/dL (60-115)
[2021-06-01 07:53] LABS: VBG Base Excess -20.9 mmol/L; VBG HCO3 5 mmol/L (22-26); VBG pCO2 12 mmHg; VBG pH 7.18 (7.32-7.43); VBG pO2 138 mmHg
[2021-06-01 08:08] LABS: ~Lactic Acid-LAB USE ONLY 3.2 mmol/L (0.5-2.0)
[2021-06-01 08:08] LABS: Glucose, Whole Blood > 600 mg/dL (60-115)
[2021-06-01 08:22] LABS: Anion Gap 36 (12-20); Blood Urea Nitrogen 84 mg/dL (9-16); Calcium 8.9 mg/dL (8.4-10.2); Carbon Dioxide 6 mmol/L (22-29); Chloride 97 mmol/L (96-108); Creatinine Clr Calc Pharmacy 20.4; Estimated Glomerular Filt Rate 17; Glucose Random 1247 mg/dL (60-115); Potassium 4.6 mmol/L (3.3-5.1); Sodium 134 mmol/L (135-145)
[2021-06-01 08:24] LABS: Venous Blood Gas Refer to POC result
[2021-06-01 08:29] LABS: Thyroid Stimulating Hormone 1.51 uIU/mL (0.32-4.0)
[2021-06-01 08:43] LABS: Phosphorus 5.6 mg/dL (2.7-4.5)
[2021-06-01] MEDS: Insulin Regular/NS 100 UNIT/100 ML PLAST..BAG 30 UNIT IVCONT ×2 (08:43→12:14)
[2021-06-01] MEDS: Albumin Human 25 % 100 ML IV ×3 (08:59→22:41)
[2021-06-01 09:17] LABS: Glucose, Whole Blood > 600 mg/dL (60-115)
[2021-06-01 09:47] LABS: Reflex Lactate? 2 Y
[2021-06-01 10:06] LABS: Glucose, Whole Blood > 600 mg/dL (60-115)
--- NOTE | 2021-06-01 10:39 | PHA.MEDREC ---
Pharmacy Consult ? Medication Reconciliation Pharmacy has completed the medication reconciliation. Patient has AMS, per RN note the number for patients daughter is incorrect. Utilized claim history to complete med rec. Nate MonteroD
[2021-06-01 11:09] LABS: Glucose, Whole Blood > 600 mg/dL (60-115)
[2021-06-01 11:26] LABS: ~Lactic Acid-LAB USE ONLY 4.1 mmol/L (0.5-2.0)
--- NOTE | 2021-06-01 11:44 | MHC.CM.PN ---
Pt admitted with DKA: critically elevated BG not responsive to insulin gtt: Pt very confused, somnulent: Call placed to numbers on file: messages left requesting a callback to assist with CM assessment and d/c planning needs. CM to await callbacks and/or discussion with pt once his MS has improved.
[2021-06-01] MEDS: Piperacillin Sodium/Tazobactam 4.5 GM in 0.9 % Sodium Chloride 100 ML IV (12:14)
[2021-06-01 12:23] LABS: Glucose, Whole Blood > 600 mg/dL (60-115)
[2021-06-01 13:14] LABS: Anion Gap 24 (12-20); Carbon Dioxide 16 mmol/L (22-29); Chloride 107 mmol/L (96-108); Creatinine Clr Calc Pharmacy 21.9; Estimated Glomerular Filt Rate 18; Potassium 3.9 mmol/L (3.3-5.1); Sodium 143 mmol/L (135-145)
[2021-06-01 13:26] LABS: Glucose Random 762 mg/dL (60-115)
[2021-06-01 13:29] LABS: Glucose, Whole Blood 575 mg/dL (60-115)
[2021-06-01 14:05] LABS: Glucose, Whole Blood 392 mg/dL (60-115)
[2021-06-01] MEDS: Insulin Regular/NS 100 UNIT/100 ML PLAST..BAG 7 UNIT IVCONT (14:34)
[2021-06-01 15:04] LABS: Blood Urea Nitrogen 79 mg/dL (9-16); Calcium 9.6 mg/dL (8.4-10.2)
[2021-06-01 15:11] LABS: Glucose, Whole Blood 353 mg/dL (60-115)
[2021-06-01 16:16] LABS: Glucose, Whole Blood 228 mg/dL (60-115)
[2021-06-01] MEDS: Dextrose 5 % and Lactated Ring 1,000 ML 100 ML IVCONT ×2 (16:27→23:48)
[2021-06-01 17:09] LABS: Glucose, Whole Blood 195 mg/dL (60-115)
[2021-06-01 18:07] LABS: Glucose, Whole Blood 160 mg/dL (60-115)
[2021-06-01 18:20] LABS: Anion Gap 14 (12-20); Blood Urea Nitrogen 68 mg/dL (9-16); Calcium 8.7 mg/dL (8.4-10.2); Carbon Dioxide 26 mmol/L (22-29); Chloride 115 mmol/L (96-108); Creatinine Clr Calc Pharmacy 27.3; Estimated Glomerular Filt Rate 24; Glucose Random 170 mg/dL (60-115); Sodium 151 mmol/L (135-145)
[2021-06-01 18:56] LABS: Glucose, Whole Blood 84 mg/dL (60-115)
[2021-06-01 20:14] LABS: Glucose, Whole Blood 131 mg/dL (60-115)
[2021-06-01 20:37] LABS: Glucose, Whole Blood 90 mg/dL (60-115)
[2021-06-01 22:02] LABS: Glucose, Whole Blood 94 mg/dL (60-115)
[2021-06-01 23:42] LABS: Glucose, Whole Blood 101 mg/dL (60-115)
[2021-06-02] VITALS (21 sets, daily range): BP systolic 108–172; BP diastolic 71–98; PULSE 79–96; RESP 10–20; TEMP 36.1–37.2; O2SAT 96–100; BMI 21.0
[2021-06-02 00:37] LABS: Glucose, Whole Blood 82 mg/dL (60-115)
[2021-06-02 01:42] LABS: Glucose, Whole Blood 93 mg/dL (60-115)
[2021-06-02] MEDS: Albumin Human 25 % 100 ML IV (02:44)
[2021-06-02 02:55] LABS: Glucose, Whole Blood 150 mg/dL (60-115)
[2021-06-02 03:56] LABS: Glucose, Whole Blood 180 mg/dL (60-115)
[2021-06-02 04:56] LABS: Glucose, Whole Blood 227 mg/dL (60-115)
[2021-06-02 05:34] LABS: VBG Base Excess -0.8 mmol/L; VBG HCO3 23 mmol/L (22-26); VBG pCO2 34 mmHg; VBG pH 7.43 (7.32-7.43); VBG pO2 40 mmHg
[2021-06-02 05:37] LABS: Venous Blood Gas Refer to POC result
[2021-06-02 05:59] LABS: MANUAL DIFF FLAG NO
[2021-06-02 06:09] LABS: Glucose, Whole Blood 238 mg/dL (60-115)
[2021-06-02 06:15] LABS: Basophils Percent Auto 0.1 % (0-2); Eosinophils Percent Auto 0.1 % (0-4); Imm Gran Abs Auto 0.12 X10*3/uL (0.00-0.03); Imm Gran Pct Auto 0.8 % (0.0-0.4); Lymphocytes Absolute Auto 3.3 X10*3/uL (1.2-4.9); Lymphocytes Percent Auto 21.8 % (20-40); Mean Corpuscular HGB Conc 32.8 g/dl (31.0-36.0); Mean Corpuscular Hemoglobin 25.9 pg (27.0-33.0); Mean Corpuscular Volume 78.9 fL (80.0-98.0); Mean Platelet Volume 9.6 fL (9.4-12.4); Monocytes Absolute Auto 0.8 X10*3/uL (0.1-1.2); Monocytes Percent Auto 4.9 % (2-11); Neutrophils Percent Auto 72.3 % (45-73); Platelet Count 351 X10*3/uL (160-400); Red Blood Count 2.47 X10*6/uL (4.60-5.80); Red Cell Distribution Width 15.4 % (11.0-16.0); White Blood Count 15.2 X10*3/uL (4.8-10.8)
[2021-06-02 06:20] LABS: Hematocrit 19.5 % (42.0-52.0); Hemoglobin 6.4 g/dl (14.0-18.0)
[2021-06-02] MEDS: Piperacillin Sodium/Tazobactam 3.375 GM in 0.9 % Sodium Chloride 50 ML IV ×4 (06:42→23:18)
[2021-06-02] MEDS: Dextrose 5 % and Lactated Ring 1,000 ML 150 ML IVCONT (06:42)
[2021-06-02 07:01] LABS: Alanine Aminotransferase 31 U/L (0-40); Albumin Level 3.5 g/dL (3.5-5.0); Alkaline Phosphatase 77 U/L (39-117); Anion Gap 13 (12-20); Aspartate Amino Transferase 22 U/L (5-37); Bilirubin Total 0.2 mg/dL (0.0-1.0); Blood Urea Nitrogen 57 mg/dL (9-16); Calcium 9.3 mg/dL (8.4-10.2); Carbon Dioxide 24 mmol/L (22-29); Chloride 116 mmol/L (96-108); Creatinine Clr Calc Pharmacy 33.1; Estimated Glomerular Filt Rate 29; Glucose Random 269 mg/dL (60-115); Magnesium 1.9 mg/dL (1.6-2.6); Phosphorus 3.5 mg/dL (2.7-4.5); Potassium 4.1 mmol/L (3.3-5.1); Sodium 149 mmol/L (135-145); Total Protein 5.3 g/dL (6.5-8.0)
[2021-06-02 07:08] LABS: Glucose, Whole Blood 216 mg/dL (60-115)
--- NOTE | 2021-06-02 07:08 | PC.NURSE ---
CARE ASSUMED 23:15..AWAKE..CONVERSES...VAGUE RESPONSES AT TIMES....INSULIN DRIP TITRATED PER MAR/PAPER FLOW SHEET PER ICU CLINICAL SUPPORT ASSOCIATE ORDERS...D5LR FROM 100 TO 150 CC/HR PER CLINICAL SUPPORT ASSOCIATE...AM H/H REVIEWED WITH CLINICAL SUPPORT ASSOCIATE...CURRENTLY 7.2 LITERS (+)...NO NEW ORDERS
[2021-06-02 08:02] LABS: Glucose, Whole Blood 233 mg/dL (60-115)
[2021-06-02] MEDS: Insulin Glargine,Hum.rec.anlog 100 UNIT/ML 10 ML VIAL 25 UNIT SUBCUT (08:32)
--- NOTE | 2021-06-02 08:48 | P.CDIC_ITS ---
CDI Concurrent Query Documentation Clarification: PHYSICIAN'S DOCUMENTATION REQUEST Date of Query: 06/02/21 0848 Patient Name: Hugh Odonnell Admit Date: 06/01/21 Dear Doctor, A review of the medical record indicates additional documentation may be needed. Please review below and update the documentation accordingly. Clinical Indicators: Risk Factors/Clinical Indicators/Treatments Altered mental status, lethargy, obtunded Per H&P 06/01/21: Encephalopathy:? this is likely related to severe DKA.? Based on the above, could you clarify in the Progress Notes which, if any of the following, is the most likely etiology of the confusion/altered mental status? * Encephalopathy - indicate type such as metabolic, toxic, septic, alcoholic, hypertensive, etc. * Acute delirium - indicate known or suspected etiology, such as postoperative, due to narcotics or other drugs, etc. * Acute or subacute confusional state due to (specify known or suspected etiology) * Other etiology (please specify) * Unable to determine Use of terms such as suspected, likely, concern for, or probable (associated with a specific diagnosis that is being evaluated, monitored, or treated as if it exists) are acceptable and can be coded in the inpatient setting, when documented at the time of discharge. Thank you, Alanna Anderson RN Extension: [phone] Please use your independent medical judgment in providing your response. THIS QUERY IS PART OF THE PERMANENT MEDICAL RECORD Provider Response: Other ( acute metabolic encephalopathy) Other Diagnosis: acute metabolic encephalopathy
--- NOTE | 2021-06-02 08:52 | P.CDIC_ITS ---
CDI Concurrent Query Documentation Clarification: PHYSICIAN'S DOCUMENTATION REQUEST Date of Query: 06/02/21 0852 Patient Name: Hugh Odonnell Admit Date: 06/01/21 Dear Doctor, A review of the medical record indicates additional documentation may be needed. Please review below and update the documentation accordingly. Clinical Indicators: Risk Factors/Clinical Indicators/Treatments H/H 8.5/34.2 Per ED note and H&P: Anemia? Based on the above, could you clarify in the Progress Notes which of the following is the most likely type of anemia you are evaluating, treating, and/or monitoring? * Anemia of chronic disease- indicate if neoplastic disease, CKD, or other * Chronic iron deficiency anemia due to blood loss * Vitamin B12 deficiency anemia ? indicate etiology, such as intrinsic factor deficiency, malabsorption, transcobalamin II deficiency, dietary, etc * Folate deficiency anemia ? indicate etiology, such as dietary, drug-induced, etc * Protein deficiency anemia * Other ? please specify * Unable to determine Use of terms such as suspected, likely, concern for, or probable (associated with a specific diagnosis that is being evaluated, monitored, or treated as if it exists) are acceptable and can be coded in the inpatient setting, when documented at the time of discharge. Thank you, Alanna Anderson RN Extension: [phone] Please use your independent medical judgment in providing your response. THIS QUERY IS PART OF THE PERMANENT MEDICAL RECORD Provider Response: Other ( anemia of unclear etiology, likely alcohol abuse related) Other Diagnosis: anemia of unclear etiology, likely alcohol abuse related
--- NOTE | 2021-06-02 09:03 | P.CDIC_ITS ---
CDI Concurrent Query Documentation Clarification: PHYSICIAN'S DOCUMENTATION REQUEST Date of Query: 06/02/21902 Patient Name: Hugh Odonnell Admit Date: 06/01/21 Dear Doctor, A review of the medical record indicates additional documentation may be needed. Please review below and update the documentation accordingly. Clinical Indicators: The following clinical information was noted in the record: Risk Factors/Clinical Indicators/Treatments BUN 86 Creatinine 4.20 Estimated GFR 29 Per past medical history: CKD, Hypertension, DM Please clarify which of the following accurately represents the patient's renal status: * CKD, please provide stage - see criteria * ESRD - CKD V now requiring permanent dialysis and/or transplant * Other (please specify) * Unable to determine Criteria for ROBERT* Stages of Chronic Kidney Disease* 1. Increase in serum creatinine by ? 0.3 mg/dL Level Description GFR (?26.5 micromol/L) within 48 hours, or G1 Normal or High > 90 2. Increase in serum creatinine to ?1.5 times baseline, G2 Mildly decreased 60 ? 89 which is known or presumed to have occurred within 7 days, or G3a Mildly to moderately decreased 45 ? 59 3. Urine volume <0.5 mL/kg/hour for six hours G3b Moderately to severely decreased 30 - 44 G4 Severely decreased 15 ? 29 G5 Kidney failure < 15 *Source: Kidney Disease: Improving Global Outcomes (KDIGO) 2012 Use of terms such as suspected, likely, concern for, or probable (associated with a specific diagnosis that is being evaluated, monitored, or treated as if it exists) are acceptable and can be coded in the inpatient setting, when documented at the time of discharge. Thank you, Alanna Anderson RN Extension: [phone] Please use your independent medical judgment in providing your response. THIS QUERY IS PART OF THE PERMANENT MEDICAL RECORD Provider Response: Other ( Acute kidney injury secondary to diabetic ketoacidosis) Other Diagnosis: Acute kidney injury secondary to diabetic ketoacidosis
--- NOTE | 2021-06-02 10:05 | MHC.CM.PN ---
Addendum entered by Eula Allred 06/02/21 16:16: Call placed to Dr. Duncan's office - they confirm pt is active: Suggested I contact either [phone] or [phone] for additional information: first number is out of service: second is for pt's aunt, Vi who notes pt has VNA but isn't sure who the agency is and states they come once a month or so Vi states [facility] most recent phone number is [phone]. Pt resides at [address] [place] [address] in [place] and Vi would be the one to transport him home. Vi will try and find out the VNA information. CM to follow Addendum entered by Eula Allred 06/02/21 10:12: Number in pt's EMR is not of his dtr Mariama. Pt states he will have to think about a contact number for his aunt/uncle and dtr. CM to follow Addendum entered by Eula Allred 06/02/21 10:10: Attempted to contact Mariama at the number provided by pt: out of service tone without the ability to leave a message. CM to attempt contacts listed in EMR Original Note: Met with pt to discuss d/c planning: pt slow to respond: requires time to process information and is vague at times. Pt states he resides with his aunt and uncle and is independent with all care needs. He has a working glucometer and a VNA for skilled RN visits. Pt is uncertain of the agency but thinks its located in [place]. VAX x2, HCP status in question: pt wasn't certain. Pt suggests I contact his dtr Mariama at [phone] for additional information. PCP is Dr. Duncan. D/C plan seems to be a return to home with existing VNA services - [facility]ama to transport.
[2021-06-02 11:26] LABS: Glucose, Whole Blood 161 mg/dL (60-115)
[2021-06-02] MEDS: Insulin Lispro 100 UNIT/ML 3 ML VIAL SUBCUT (11:45)
[2021-06-02 12:54] LABS: Anion Gap 12 (12-20); Blood Urea Nitrogen 45 mg/dL (9-16); Calcium 9.6 mg/dL (8.4-10.2); Carbon Dioxide 26 mmol/L (22-29); Chloride 114 mmol/L (96-108); Creatinine Clr Calc Pharmacy 38.8; Estimated Glomerular Filt Rate 34; Glucose Random 152 mg/dL (60-115); Potassium 4.4 mmol/L (3.3-5.1); Sodium 148 mmol/L (135-145)
--- NOTE | 2021-06-02 13:19 | PM.CCPN ---
Subjective Subjective Date of Service: 06/02/21 Interval History: 50-year-old gentleman with underlying history of diabetes 1 mellitus with multiple prior episodes of diabetic ketoacidosis secondary to medication of noncompliance, prior pea arrest in August 2020 at [facility], alcohol dependence, CKD, chronic anemia, megacolon status post transverse colostomy in February of 2021 admitted on 06/01/2021 with lethargy. On ER evaluation patient was noted to have serum glucose of 1900 with profound diabetic ketoacidosis, acute on chronic renal failure, and hyperkalemia. He was started on insulin drip , empiric antibiotics, and IV fluid resuscitation and admitted to intensive care unit. no events overnight. Titrated off insulin drip. Critical Care Time (minutes): 0 Physical Exam Vital Signs: Vital Signs: Last Vital Signs Temp 99.0 F 06/02/21 11:54 Pulse 87 06/02/21 13:00 Resp 14 06/02/21 13:00 BP 149/96 H 06/02/21 13:00 Pulse Ox 100 06/02/21 13:00 BMI result Body Mass Index 21.0 Const: General: no acute distress, alert and awake Eyes: Sclerae: sclerae normal EOM: EOMs intact bilaterally Neck: Neck: Yes no lymphadenopathy, Yes trachea midline and Yes supple Resp: Effort & Inspection: normal respiratory effort and no respiratory distress Auscultation: clear to auscultation bilaterally Cardio: Rate: regular rate Rhythm: regular rhythm Heart sounds: no gallops, no murmurs and no rubs GI: Inspection: Yes other ( Colostomy with output) Palpation (GI): Soft to palpation and Other GI palpation findings present ( Nontender) Auscultation: normal bowel sounds Extrem: General: Yes no pedal edema, No clubbing and No cyanosis Objective Data Labs CBC & Chem 7: 06/02/21 05:25 06/02/21 12:30 Labs: Laboratory Results - last 24 hr 06/01/21 06/01/21 06/01/21 11:33 13:24 14:02 WBC RBC Hgb Hct MCV MCH MCHC RDW Plt Count MPV Immature Gran % (Auto) Neut % (Auto) Lymph % (Auto) [place] % (Auto) Eos % (Auto) Baso % (Auto) Lymph # (Auto) [place] # (Auto) Eos # (Auto) Baso # (Auto) Abs Immat Gran (auto) Absolute Neuts (auto) Absolute Nucleated RBC Nucleated RBC % (auto) VBG pH VBG pCO2 VBG pO2 VBG HCO3 VBG O2 Saturation VBG Base Excess Sodium Potassium Chloride Carbon Dioxide Anion Gap BUN 79 H Creatinine Estim Creat Clear Calc Estimated GFR POC Glucose 575 H* 392 H* Random Glucose 762 H* Calcium 9.6 D Phosphorus Magnesium Total Bilirubin AST ALT Alkaline Phosphatase Total Protein Albumin Blood Type Antibody Screen Crossmatch 06/01/21 06/01/21 06/01/21 15:05 16:13 17:05 WBC RBC Hgb Hct MCV MCH MCHC RDW Plt Count MPV Immature Gran % (Auto) Neut % (Auto) Lymph % (Auto) [place] % (Auto) Eos % (Auto) Baso % (Auto) Lymph # (Auto) [place] # (Auto) Eos # (Auto) Baso # (Auto) Abs Immat Gran (auto) Absolute Neuts (auto) Absolute Nucleated RBC Nucleated RBC % (auto) VBG pH VBG pCO2 VBG pO2 VBG HCO3 VBG O2 Saturation VBG Base Excess Sodium Potassium Chloride Carbon Dioxide Anion Gap BUN Creatinine Estim Creat Clear Calc Estimated GFR POC Glucose 353 H* 228 H 195 H Random Glucose Calcium Phosphorus Magnesium Total Bilirubin AST ALT Alkaline Phosphatase Total Protein Albumin Blood Type Antibody Screen Crossmatch 06/01/21 06/01/21 06/01/21 17:58 18:04 18:53 WBC RBC Hgb Hct MCV MCH MCHC RDW Plt Count MPV Immature Gran % (Auto) Neut % (Auto) Lymph % (Auto) [place] % (Auto) Eos % (Auto) Baso % (Auto) Lymph # (Auto) [place] # (Auto) Eos # (Auto) Baso # (Auto) Abs Immat Gran (auto) Absolute Neuts (auto) Absolute Nucleated RBC Nucleated RBC % (auto) VBG pH VBG pCO2 VBG pO2 VBG HCO3 VBG O2 Saturation VBG Base Excess Sodium 151 H Potassium 4.0 Chloride 115 H Carbon Dioxide 26 Anion Gap 14 BUN 68 H Creatinine 2.81 H Estim Creat Clear Calc 27.3 Estimated GFR 24 POC Glucose 160 H 84 Random Glucose 170 H D Calcium 8.7 D Phosphorus Magnesium Total Bilirubin AST ALT Alkaline Phosphatase Total Protein Albumin Blood Type Antibody Screen Crossmatch 06/01/21 06/01/21 06/01/21 20:10 20:32 21:54 WBC RBC Hgb Hct MCV MCH MCHC RDW Plt Count MPV Immature Gran % (Auto) Neut % (Auto) Lymph % (Auto) [place] % (Auto) Eos % (Auto) Baso % (Auto) Lymph # (Auto) [place] # (Auto) Eos # (Auto) Baso # (Auto) Abs Immat Gran (auto) Absolute Neuts (auto) Absolute Nucleated RBC Nucleated RBC % (auto) VBG pH VBG pCO2 VBG pO2 VBG HCO3 VBG O2 Saturation VBG Base Excess Sodium Potassium Chloride Carbon Dioxide Anion Gap BUN Creatinine Estim Creat Clear Calc Estimated GFR POC Glucose 131 H 90 94 Random Glucose Calcium Phosphorus Magnesium Total Bilirubin AST ALT Alkaline Phosphatase Total Protein Albumin Blood Type Antibody Screen Crossmatch 06/01/21 06/02/21 06/02/21 23:24 00:31 01:37 WBC RBC Hgb Hct MCV MCH MCHC RDW Plt Count MPV Immature Gran % (Auto) Neut % (Auto) Lymph % (Auto) [place] % (Auto) Eos % (Auto) Baso % (Auto) Lymph # (Auto) [place] # (Auto) Eos # (Auto) Baso # (Auto) Abs Immat Gran (auto) Absolute Neuts (auto) Absolute Nucleated RBC Nucleated RBC % (auto) VBG pH VBG pCO2 VBG pO2 VBG HCO3 VBG O2 Saturation VBG Base Excess Sodium Potassium Chloride Carbon Dioxide Anion Gap BUN Creatinine Estim Creat Clear Calc Estimated GFR POC Glucose 101 82 93 Random Glucose Calcium Phosphorus Magnesium Total Bilirubin AST ALT Alkaline Phosphatase Total Protein Albumin Blood Type Antibody Screen Crossmatch 06/02/21 06/02/21 06/02/21 02:49 03:52 04:52 WBC RBC Hgb Hct MCV MCH MCHC RDW Plt Count MPV Immature Gran % (Auto) Neut % (Auto) Lymph % (Auto) [place] % (Auto) Eos % (Auto) Baso % (Auto) Lymph # (Auto) [place] # (Auto) Eos # (Auto) Baso # (Auto) Abs Immat Gran (auto) Absolute Neuts (auto) Absolute Nucleated RBC Nucleated RBC % (auto) VBG pH VBG pCO2 VBG pO2 VBG HCO3 VBG O2 Saturation VBG Base Excess Sodium Potassium Chloride Carbon Dioxide Anion Gap BUN Creatinine Estim Creat Clear Calc Estimated GFR POC Glucose 150 H 180 H 227 H Random Glucose Calcium Phosphorus Magnesium Total Bilirubin AST ALT Alkaline Phosphatase Total Protein Albumin Blood Type Antibody Screen Crossmatch 06/02/21 06/02/21 06/02/21 05:25 05:25 05:27 WBC 15.2 H RBC 2.47 L Hgb 6.4 L* Hct 19.5 L* D MCV 78.9 L D MCH 25.9 L MCHC 32.8 RDW 15.4 Plt Count 351 D MPV 9.6 Immature Gran % (Auto) 0.8 H Neut % (Auto) 72.3 Lymph % (Auto) 21.8 [place] % (Auto) 4.9 Eos % (Auto) 0.1 Baso % (Auto) 0.1 Lymph # (Auto) 3.3 [place] # (Auto) 0.8 Eos # (Auto) 0.0 Baso # (Auto) 0.0 Abs Immat Gran (auto) 0.12 H Absolute Neuts (auto) 11.0 H Absolute Nucleated RBC 0.000 Nucleated RBC % (auto) 0.0 VBG pH 7.43 VBG pCO2 34 VBG pO2 40 VBG HCO3 23 VBG O2 Saturation 65.0 VBG Base Excess -0.8 Sodium 149 H Potassium 4.1 Chloride 116 H Carbon Dioxide 24 Anion Gap 13 BUN 57 H Creatinine 2.41 H Estim Creat Clear Calc 33.1 Estimated GFR 29 POC Glucose Random Glucose 269 H D Calcium 9.3 D Phosphorus 3.5 Magnesium 1.9 Total Bilirubin 0.2 AST 22 D ALT 31 Alkaline Phosphatase 77 D Total Protein 5.3 L Albumin 3.5 D Blood Type Antibody Screen Crossmatch 06/02/21 06/02/21 06/02/21 05:43 07:05 07:59 WBC RBC Hgb Hct MCV MCH MCHC RDW Plt Count MPV Immature Gran % (Auto) Neut % (Auto) Lymph % (Auto) [place] % (Auto) Eos % (Auto) Baso % (Auto) Lymph # (Auto) [place] # (Auto) Eos # (Auto) Baso # (Auto) Abs Immat Gran (auto) Absolute Neuts (auto) Absolute Nucleated RBC Nucleated RBC % (auto) VBG pH VBG pCO2 VBG pO2 VBG HCO3 VBG O2 Saturation VBG Base Excess Sodium Potassium Chloride Carbon Dioxide Anion Gap BUN Creatinine Estim Creat Clear Calc Estimated GFR POC Glucose 238 H 216 H 233 H Random Glucose Calcium Phosphorus Magnesium Total Bilirubin AST ALT Alkaline Phosphatase Total Protein Albumin Blood Type Antibody Screen Crossmatch 06/02/21 06/02/21 06/02/21 08:29 11:22 12:30 WBC RBC Hgb Hct MCV MCH MCHC RDW Plt Count MPV Immature Gran % (Auto) Neut % (Auto) Lymph % (Auto) [place] % (Auto) Eos % (Auto) Baso % (Auto) Lymph # (Auto) [place] # (Auto) Eos # (Auto) Baso # (Auto) Abs Immat Gran (auto) Absolute Neuts (auto) Absolute Nucleated RBC Nucleated RBC % (auto) VBG pH VBG pCO2 VBG pO2 VBG HCO3 VBG O2 Saturation VBG Base Excess Sodium 148 H Potassium 4.4 Chloride 114 H Carbon Dioxide 26 Anion Gap 12 BUN 45 H Creatinine 2.06 H Estim Creat Clear Calc 38.8 Estimated GFR 34 POC Glucose 161 H Random Glucose 152 H D Calcium 9.6 Phosphorus Magnesium Total Bilirubin AST ALT Alkaline Phosphatase Total Protein Albumin Blood Type O Negative Antibody Screen NEGATIVE Crossmatch See Detail Microbiology Microbiology Results: Microbiology 06/01/21 04:39 Blood - Venous Blood Culture - Preliminary No growth after 24 hours. 06/01/21 04:39 Blood - Venous Blood Culture - Preliminary No growth after 24 hours. Progress Note: A&P Assessment and plan (1) ROBERT (acute kidney injury): Status: Acute (2) DKA (diabetic ketoacidosis): Status: Acute (3) Encephalopathy: Status: Acute (4) Anemia: Status: Acute (5) Hypertension: Status: Acute Plan Assessment: 50-year-old gentleman with underlying diabetes mellitus type 1 with suboptimal compliance with insulin therapy, CKD, chronic anemia admitted with diabetic ketoacidosis and profound dehydration. Plan: Neuro: Acute metabolic encephalopathy secondary to diabetic ketoacidosis, resolved Cardiac: No acute issues. Pulmonary: No acute issues. Renal: acute kidney injury on the background of chronic kidney disease secondary to diabetic ketoacidosis. Improved with IV fluids. Hyperkalemia resolved. Continue to monitor renal indices and urine output. Endo: diabetic ketoacidosis initially requiring insulin drip, now titrated off. Continue with subcutaneous insulin. GI: No acute issues. ID: Empirically covered with broad-spectrum antibiotics and blood cultures are pending, consider discontinuation in 24 hours if blood cultures remain negative and leukocytosis continues to decrease. Heme/Onc: Acute on chronic anemia secondary to volume dilutional of likely underlying macrocytic anemia secondary to alcohol abuse. To be transfused 1 unit of packed red blood cells. Psych: No acute issues. Miscellaneous: No acute issues. Prophylaxis: Heparin Diet: diabetic Quality Stroke Does the patient have a stroke diagnosis?: No VTE Prior VTE?: No VTE Risk Level:: Medical - moderate - high VTE Device Contraindication: N/A - Device Ordered VTE Drug Contraindication: N/A - Med Ordered
[2021-06-02] MEDS: Omeprazole 40 MG CAPSULE.DR PO (14:13)
[2021-06-02] MEDS: Folic Acid 1 MG TABLET PO (14:13)
[2021-06-02] MEDS: Thiamine HCL 100 MG TABLET 300 MG PO (14:13)
[2021-06-02] MEDS: Heparin Sodium,Porcine 5,000 UNIT/ML VIAL 5000 UNIT SUBCUT ×2 (14:13→20:42)
[2021-06-02 17:54] LABS: Glucose, Whole Blood 60 mg/dL (60-115)
[2021-06-02] MEDS: Dextrose 10 % 1,000 ML 30 ML IVCONT (18:00)
[2021-06-02 18:09] LABS: Glucose, Whole Blood 48 mg/dL (60-115)
[2021-06-02] MEDS: Glucose Gel 15 GM GEL..GRAM. PO ×2 (18:15→18:43)
[2021-06-02 18:59] LABS: Glucose, Whole Blood 85 mg/dL (60-115)
[2021-06-02 18:59] LABS: Glucose, Whole Blood 69 mg/dL (60-115)
[2021-06-02 19:53] LABS: Glucose, Whole Blood 153 mg/dL (60-115)
--- NOTE | 2021-06-02 19:53 | PC.NURSE ---
Assumed care at about 15:00 from ADELINA Orourke. Patient alert, oriented, not on any IV fluids, was compliant with care. Room air, satting well, breathing easily. Patient afebrile, continues on zosyn for ?UTI, but UA looks clear, oncoming nurse aware. Patient had stopped insulin gtt this morning and started lantus, random Glucose was 152 around 12:30. [place] was cleared [place] [facility] given [place] [facility] [place], then determined to check POC glucose before transfer, and patient's POCT was 60 at 1748. Patient was given 560 ccs of orange juice PO and some crackers, and recheck POC was 48 at 18:05. Patient was given 15 grams of oral glutose gel per protocol and MD was notified and new order for dextrose 10% IV at 30 cc per hour was started, and follow-up POC at 18:37 was 69. Repeat Glutose 15 GM and followup was 84 POCT at 1855. Patient with no symptoms associated with this drop. Changed colostomy while awaiting POC to come up. Also unable to find new IV access after 2 tries, EJ is leaking and D10% not compatible with zosyn. Report given and oncoming nurse notified. Was transferred upstairs
[2021-06-03 00:16] LABS: Glucose, Whole Blood 181 mg/dL (60-115)
[2021-06-03 03:41] LABS: Glucose, Whole Blood 108 mg/dL (60-115)
[2021-06-03 03:53] VITALS: BP 147/95; PULSE 82; RESP 16; TEMP 36.7; O2SAT 96
[2021-06-03] MEDS: Piperacillin Sodium/Tazobactam 3.375 GM in 0.9 % Sodium Chloride 50 ML IV ×2 (05:39→12:38)
[2021-06-03] MEDS: Heparin Sodium,Porcine 5,000 UNIT/ML VIAL 5000 UNIT SUBCUT ×2 (05:40→17:47)
[2021-06-03] MEDS: Omeprazole 40 MG CAPSULE.DR PO (05:40)
[2021-06-03 07:11] VITALS: BP 151/99; PULSE 77; RESP 18; TEMP 36.4; O2SAT 99
[2021-06-03 07:14] LABS: MANUAL DIFF FLAG NO
[2021-06-03 07:17] LABS: Eosinophils Percent Auto 0.1 % (0-4); Hematocrit 26.7 % (42.0-52.0); Hemoglobin 8.7 g/dl (14.0-18.0); Imm Gran Abs Auto 0.04 X10*3/uL (0.00-0.03); Imm Gran Pct Auto 0.5 % (0.0-0.4); Lymphocytes Absolute Auto 3.6 X10*3/uL (1.2-4.9); Lymphocytes Percent Auto 42.7 % (20-40); Mean Corpuscular HGB Conc 32.6 g/dl (31.0-36.0); Mean Corpuscular Volume 82.9 fL (80.0-98.0); Mean Platelet Volume 9.7 fL (9.4-12.4); Monocytes Absolute Auto 0.4 X10*3/uL (0.1-1.2); Neutrophils Absolute Auto 4.3 x10*3/uL (2.0-8.3); Neutrophils Percent Auto 51.7 % (45-73); Platelet Count 274 X10*3/uL (160-400); Red Blood Count 3.22 X10*6/uL (4.60-5.80); Red Cell Distribution Width 16.3 % (11.0-16.0); White Blood Count 8.4 X10*3/uL (4.8-10.8)
[2021-06-03 07:22] LABS: Glucose, Whole Blood 115 mg/dL (60-115)
[2021-06-03 07:34] LABS: Albumin Level 3.3 g/dL (3.5-5.0); Anion Gap 10 (12-20); Blood Urea Nitrogen 26 mg/dL (9-16); Calcium 8.9 mg/dL (8.4-10.2); Carbon Dioxide 25 mmol/L (22-29); Chloride 113 mmol/L (96-108); Estimated Glomerular Filt Rate > 60; Glucose Random 114 mg/dL (60-115); Magnesium 1.7 mg/dL (1.6-2.6); Phosphorus 2.6 mg/dL (2.7-4.5); Potassium 3.9 mmol/L (3.3-5.1); Sodium 144 mmol/L (135-145)
--- NOTE | 2021-06-03 09:19 | P.PNIM_ITS ---
Subjective Subjective Date of Service: 06/03/21 Interval History: late entry note for 06/03. f/u on dka, no new issues, no hypoglycemia Review of Systems Gen: no fever Resp: no sob, no cough CV: no chest, no PRADO, no leg edema GI: No n/v, no abd pain Neuro: No confusion Physical Exam Vital Signs: Vital Signs: Last Vital Signs Temp 97.6 F 06/04/21 07:07 Pulse 78 06/04/21 07:07 Resp 18 06/04/21 07:07 BP 161/99 H 06/04/21 07:07 Pulse Ox 96 06/04/21 07:07 BMI result Body Mass Index 20.9 Const: Other: General: AO X 3, no acute distress Resp: CTA bilateral CVS: S1,S2,RRR GI: +BS, NT, no distention Skin: No rash Neuro: motor grossly intact Psych: appropriate affect Objective Data Active Medications Atorvastatin Calcium (Atorvastatin Calcium 40 Mg Tablet) 40 mg PO BEDTIME [facility] Last Admin: 06/03/21 22:22 Dose: 40 mg Documented by: CATHIE Folic Acid (Folic Acid 1 Mg Tablet) 1 mg PO DAILY [facility] Last Admin: 06/04/21 08:21 Dose: 1 mg Documented by: GRACIELA Glucose (Glucose Gel 15 Gm Gel..Gram.) 15 gm PO Q15M PRN PRN Reason: per Hypoglycemia Standing Ord. Last Admin: 06/02/21 18:43 Dose: 15 gm Documented by: RONY Heparin Sodium (Porcine) (Heparin Sodium,Porcine 5,000 Unit/Ml Vial) 5,000 unit SUBCUT Q8H [facility] Last Admin: 06/04/21 07:37 Dose: Not Given Documented by: GRACIELA Non-Admin Reason: Patient Refused Piperacillin Sod/Tazobactam (Sod 3.375 gm/ Sodium Chloride) 50 mls @ 100 mls/hr IV Q6H [facility] Last Admin: 06/03/21 21:06 Dose: Not Given Documented by: CATHIE Non-Admin Reason: Physician Held Med Insulin Glargine (Insulin Glargine,Hum.Rec.Anlog 100 Unit/Ml 10 Ml Vial) 25 unit SUBCUT DAILY [facility] Last Admin: 06/04/21 08:21 Dose: 25 unit Documented by: HO.COTEMA Insulin Human Lispro (Insulin Lispro 100 Unit/Ml 3 Ml Vial) 0 unit SUBCUT QIDACHS [facility]; Protocol Last Admin: 06/04/21 08:20 Dose: 8 unit Documented by: COTEMA Metoprolol Succinate (Metoprolol Succinate Er 50 Mg Tab.Er.24h) 50 mg PO DAILY [facility]; Protocol Last Admin: 06/04/21 08:21 Dose: 50 mg Documented by: COTEMA Multivitamins/Vitamin C (Multivitamin Tablet) 1 tab PO DAILY [facility] Last Admin: 06/04/21 08:20 Dose: 1 tab Documented by: ANIYAH.COTEMA Omeprazole (Omeprazole 40 Mg Capsule.Dr) 40 mg PO DAILY@0630 [facility] Last Admin: 06/04/21 06:22 Dose: 40 mg Documented by: ANTOIC Sertraline HCl (Sertraline Hcl 100 Mg Tablet) 100 mg PO DAILY [facility] Last Admin: 06/04/21 08:21 Dose: 100 mg Documented by: COTEMA Thiamine HCl (Thiamine Hcl 100 Mg Tablet) 300 mg PO DAILY [facility] Last Admin: 06/04/21 08:21 Dose: 300 mg Documented by: GRACIELA Labs CBC & Chem 7: 06/03/21 06:51 06/03/21 06:51 Labs: Laboratory Results - last 24 hr 06/03/21 06/03/21 06/03/21 11:04 15:52 21:02 POC Glucose 191 H 197 H 40 L* 06/03/21 06/04/21 22:23 07:08 POC Glucose 179 H 316 H Microbiology Microbiology Results: Microbiology 06/01/21 04:39 Blood Culture - Preliminary Blood - Venous No growth after 48 hours. 06/01/21 04:39 Blood Culture - Preliminary Blood - Venous No growth after 48 hours. Assessment and Plan (1) Hypertension: Status: Acute (2) Encephalopathy: Status: Acute (3) Hypothermia: Status: Acute (4) Type 1 diabetes: Status: Acute Plan DKA--resolved, DC IVF with glucose Continue Lantus at 25 at night HLD--statin HTN--metoprolol No aspiration PNA--DC Zosyn, Discharge next day Late entry note for 06/03 Quality Stroke Does the patient have a stroke diagnosis?: No VTE Prior VTE?: No VTE Risk Level:: Medical - moderate - high VTE Device Contraindication: N/A - Device Ordered VTE Drug Contraindication: N/A - Med Ordered
[2021-06-03] MEDS: Metoprolol Succinate ER 50 MG TAB.ER.24H PO (09:45)
[2021-06-03] MEDS: Thiamine HCL 100 MG TABLET 300 MG PO (09:45)
[2021-06-03] MEDS: Multivitamin TABLET 1 TAB PO (09:45)
[2021-06-03] MEDS: Sertraline HCL 100 MG TABLET PO (09:45)
[2021-06-03] MEDS: Folic Acid 1 MG TABLET PO (09:46)
[2021-06-03 11:02] VITALS: BP 155/85; PULSE 83; RESP 18; TEMP 36.6; O2SAT 98
[2021-06-03 11:41] LABS: Glucose, Whole Blood 191 mg/dL (60-115)
--- NOTE | 2021-06-03 12:32 | PM.DS ---
DS: Providers Provider Date of Service: 06/04/21 Date of admission: 06/01/21 04:46 Primary care physician: Davina Duncan MD DS: Diagnosis Discharge Diagnosis (1) ROBERT (acute kidney injury): Status: Acute (2) DKA (diabetic ketoacidosis): Status: Acute (3) Encephalopathy: Status: Acute (4) Anemia: Status: Acute (5) Hypertension: Status: Acute DS: Summary Hospital Course Hospital Course: Chief Complaint: Lethargy The patient is a 50-year-old male with history of type 1 diabetes mellitus? with prior multiple episodes of DKA, PEA arrest August 2020, hypertension,? alcohol abuse, chronic kidney disease, chronic anemia, hyperlipidemia? 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 emergency room via ambulance after being found? severely lethargic by .? EMS noted blood sugar 485 on arrival to patient?s home.? According to the patient was found in the basement? and she was unable to wake him up.? On arrival to the emergency room patient was obtunded,? but able to protect airway,? temperature 90.0,? pulse 112, blood pressure 95/56. ? Random glucose was noted to be 1951. ?VBGs: 6.94// 13/92/3.? Other significant laboratory data? WBC? 37.9,? hemoglobin 8.5, crit 34,? sodium 123, potassium 7.9, chloride 78, serum bicarb<5,? BUN 86, creatinine 4.20, lactic acid 2.5, magnesium 3.4, ALT 49, alk phos 175 ?Urine:? positive for acetone? and ketones.? Tox screen positive for THC ? In the ED he received? an amp of bicarb, 10 units of? subcut lispro,? Zosyn, calcium gluconate, 3 L? normal saline,? and started on insulin drip ? Patient will be admitted to the ICU for management of ketoacidosis requiring insulin drip Hospital course; Patient was initially admitted to ICU for insulin drip for DKA, further management including aggressive hydration with IVF and correction of electrolytes. He was also given empiric Zosyn but has had no source of infection. Ultimately his DKA resolved along with resolution of ROBERT and encephalopathy. He is back on long acting Lantus and Sliding scale insulin, Lantus has been increased to 25 from 18. He did developed hypoglycemia which has now resolved. He is tolerating regular diet Time Spent with Patient Time attestation: Total time spent providing and/or coordinating discharge services: Discharge coordination time: Greater than 30 minutes Quality: Stroke Does the patient have a stroke diagnosis?: No Physical Exam Vital Signs: Vital Signs: Selected Entries 06/04/21 07:07 Temperature 97.6 F Pulse Rate 78 Respiratory Rate 18 Blood Pressure 161/99 H Pulse Oximetry 96 Oxygen Delivery Me thod Room Air Const: Other: General: AO X 3, no acute distress Resp: CTA bilateral CVS: S1,S2,RRR GI: +BS, NT, no distention Skin: No rash Neuro: motor grossly intact Psych: appropriate affect Discharge Plan Discharge Anticipated Discharge Date/Time: 06/04/21 09:17 Patient Disposition: Home, Self-Care Discharge Diagnosis: DKA, ROBERT, Referrals: Physician,Unknown J [Physician] - 1 Week (Resume skilled RN visits with your existing [facility]NA - Agency unknown by pt) Discharge Medications: Continued atorvastatin 40 mg tablet 1 tab PO DAILY 0RF metoprolol succinate 50 mg tablet extended release 24 hr 1 tab PO DAILY 0RF sertraline 100 mg tablet 1 tab PO DAILY 0RF pantoprazole 40 mg tablet,delayed release (DR/EC) 1 tab PO DAILY 0RF ferrous sulfate 325 mg (65 mg iron) tablet 1 tab PO DAILY 0RF insulin lispro [Humalog U-100 Insulin] 100 unit/mL solution See Rx Instructions .ROUTE .COMPLEX 0RF Rx Instructions: INSULIN PUMP, UP TO 35 UNITS PER DAY multivitamin with folic acid [Daily-Letty (with folic acid)] 400 mcg tablet 1 tab PO DAILY 0RF Changed Lantus Solostar U-100 Insulin 100 unit/mL (3 mL) insulin pen 25 unit subcut DAILY Qty: 0 0RF Discharge Orders: Discharge Order (Routine); Ordered 06/04/21 Ordered By: Abhishek Hernandez Diet: advance to usual diet Activity on Discharge: No Running or jogging Stand Alone Forms: Patient Portal Discharge page Care Plan Goals: Control of diabetes and prevent rehospitalization Health Concerns: type 1 diabetes Plan of Treatment: Take insulin as directed and follow up with your doctor in Assessment: as above
[2021-06-03] MEDS: Insulin Lispro 100 UNIT/ML 3 ML VIAL SUBCUT ×2 (12:41→17:46)
--- NOTE | 2021-06-03 14:09 | MHC.CM.PN ---
Male 50 DX DKA DP Home with resumption of VNA services. Aunt Vi will provide transportation. Per MD rounds Diet advanced, dc if tolerates.
[2021-06-03 14:59] VITALS: BP 153/97; PULSE 84; RESP 20; TEMP 36.6; O2SAT 96
[2021-06-03 16:05] LABS: Glucose, Whole Blood 197 mg/dL (60-115)
[2021-06-03 20:00] VITALS: BP 147/98; PULSE 81; RESP 18; TEMP 36.9; O2SAT 100
[2021-06-03 21:06] LABS: Glucose, Whole Blood 40 mg/dL (60-115)
[2021-06-03] MEDS: Atorvastatin Calcium 40 MG TABLET PO (22:22)
[2021-06-03 22:28] LABS: Glucose, Whole Blood 179 mg/dL (60-115)
[2021-06-03 23:40] VITALS: BP 151/92; PULSE 81; RESP 18; TEMP 36.6; O2SAT 97
[2021-06-04 04:00] VITALS: BP 152/94; PULSE 82; RESP 18; TEMP 36.6; O2SAT 96
[2021-06-04 06:00] VITALS: BMI 20.9
[2021-06-04] MEDS: Omeprazole 40 MG CAPSULE.DR PO (06:22)
[2021-06-04 07:07] VITALS: BP 161/99; PULSE 78; RESP 18; TEMP 36.4; O2SAT 96
[2021-06-04 07:35] LABS: Glucose, Whole Blood 316 mg/dL (60-115)
[2021-06-04] MEDS: Multivitamin TABLET 1 TAB PO (08:20)
[2021-06-04] MEDS: Insulin Lispro 100 UNIT/ML 3 ML VIAL SUBCUT (08:20)
[2021-06-04] MEDS: Sertraline HCL 100 MG TABLET PO (08:21)
[2021-06-04] MEDS: Folic Acid 1 MG TABLET PO (08:21)
[2021-06-04] MEDS: Thiamine HCL 100 MG TABLET 300 MG PO (08:21)
[2021-06-04] MEDS: Metoprolol Succinate ER 50 MG TAB.ER.24H PO (08:21)
[2021-06-04] MEDS: Insulin Glargine,Hum.rec.anlog 100 UNIT/ML 10 ML VIAL 25 UNIT SUBCUT (08:21)
--- NOTE | 2021-06-04 11:30 | MHC.CM.PN ---
PT CLEARED TO [facility] TODAY WITH NO SERVICES PTS AUNT LOKESH [phone] WILL TRANSPORT
== END 2021-06-04 11:13 | disposition home or self-care (01) | DRG 420 ==
LOC: HO.ED 04:56 → HO.EDOVER 05:19 → HO.ICU 05:42 → HO.IMC 06-02 14:59
PROVIDERS: Hospitalist; Internal Medicine Pulmonary Disease; Admitting Provider Registered Nurse Community Health; Emergency Provider Student in an Organized Health Care Education/Training Program; PCP Internal Medicine; Visit Provider Internal Medicine
DX: E10.10 Type 1 diabetes mellitus with ketoacidosis without coma (principal); G93.41 Metabolic encephalopathy; N17.9 Acute kidney failure, unspecified; T68.XXXA Hypothermia, initial encounter; D64.9 Anemia, unspecified; I10 Essential (primary) hypertension; D72.829 Elevated white blood cell count, unspecified; E87.5 Hyperkalemia; Z20.822 Contact with and (suspected) exposure to COVID-19; Z79.4 Long term (current) use of insulin; Z79.899 Other long term (current) drug therapy
CPT/HCPCS: 36415; 71045; 80048; 80053; 80307; 81001; 82009; 82040; 82272; 82550; 82803; 82947; 83605; 83735; 84100; 84443; 85007; 85025; 85027; 85610; 86850; 86900; 86901; 86923; 87040; 87635; 93005; 96361; 96365; 96366; 96367; 96375; 99285; 99291; J0610; J2543; J3370; P9016; P9047